=== PATIENT | female | born 1960 | race Caucasian/White ===

== ENCOUNTER → 2016-08-22 | Outpatient (CLI) | payer OTHER ==
--- NOTE | 2016-08-23 12:46 | MAMMOGRAPHY REPORT ---
BILATERAL DIGITAL SCREENING MAMMOGRAM TOMOSYNTHESIS WITH CAD: 08/22/2016 CLINICAL HISTORY: Routine screening. Patient has no complaints. TECHNIQUE: Breast tomosynthesis in addition to standard 2D mammography was performed. Current study was also evaluated with a Computer Aided Detection (CAD) system. COMPARISON: Comparison is made to exams dated: 08/20/2015 mammogram, 08/17/2014 mammogram, 08/15/2013 vannessa mogram, 08/14/2012 mammogram, 08/14/2011 mammogram, and 08/11/2010 mammogram - [facility]. BREAST COMPOSITION: There are scattered areas of fibroglandular density in both breasts. FINDINGS: There is stable asymmetry and punctate microcalcifications in the left upper outer quadran t. No suspicious mass, architectural distortion or cluster of new, suspicious microcalcifications i s seen. IMPRESSION: ACR BI-RADS CATEGORY 1: NEGATIVE There is no mammographic evidence of malignancy. A 1 year screening mammogram is recommended. The p atient will receive written notification of the results. Approximately 10% of breast cancers are not detected with mammography. A negative mammographic repor t should not delay biopsy if a clinically suggestive mass is present. Shweta Braun M.D. ay/:08/22/2016 16:48:36 Box Machine Operator: Bonita DUBOIS)(Sarah), [facility] letter sent: Normal 1/2 BI-RADS Code: ACR BI-RADS Category 1: Negative
== END | disposition home or self-care (01) ==
LOC: C.MAMM 10:05
PROVIDERS: ATTEND Student in an Organized Health Care Education/Training Program
DX: Z12.31 Encounter for screening mammogram for malignant neoplasm of breast (principal)

== ENCOUNTER → 2017-08-24 | Outpatient (CLI) | payer OTHER ==
--- NOTE | 2017-08-27 07:44 | MAMMOGRAPHY REPORT ---
BILATERAL DIGITAL SCREENING MAMMOGRAM TOMOSYNTHESIS WITH CAD: 08/24/2017 CLINICAL HISTORY: Routine screening. Patient has no complaints. TECHNIQUE: Breast tomosynthesis in addition to standard 2D mammography was performed. Current study was also evaluated with a Computer Aided Detection (CAD) system. COMPARISON: Comparison is made to exams dated: 08/22/2016 mammogram, 08/20/2015 mammogram, 08/17/2014 vannessa mogram, 08/15/2013 mammogram, 08/14/2012 mammogram, and 08/14/2011 mammogram - [facility] . BREAST COMPOSITION: There are scattered areas of fibroglandular density in both breasts. FINDINGS: There are grouped calcifications within the left upper outer quadrant, for which spot magni fication views are recommended for further evaluation. The remainder of both breasts demonstrate no s uspicious masses, calcifications, or areas of architectural distortion. IMPRESSION: ACR BI-RADS CATEGORY 0: INCOMPLETE EVALUATION: NEED ADDITIONAL IMAGING EVALUATION Left upper outer quadrant calcifications, for which additional imaging evaluation is recommended. Th e patient will be called to schedule an appointment. Approximately 10% of breast cancers are not detected with mammography. A negative mammographic report should not delay biopsy if a clinically suggestive mass is present. Bri Vinson M.D. /:08/25/2017 11:22:41 It Generalist: Shanae DUBOIS)(Sarah), [facility] letter sent: Addl Imaging 0 BI-RADS Code: ACR BI-RADS Category 0: Incomplete Evaluation: Need Additional Imaging Evaluation
== END | disposition home or self-care (01) ==
LOC: C.MAMM 10:00
PROVIDERS: ATTEND Student in an Organized Health Care Education/Training Program
DX: Z12.31 Encounter for screening mammogram for malignant neoplasm of breast (principal); R92.1 Mammographic calcification found on diagnostic imaging of breast

== ENCOUNTER → 2017-09-05 | Outpatient (CLI) | payer OTHER ==
--- NOTE | 2017-09-05 15:32 | MAMMOGRAPHY REPORT ---
UNILATERAL LEFT DIGITAL DIAGNOSTIC MAMMOGRAM: 09/05/2017 CLINICAL HISTORY: 57-year-old woman called back from screening mammography for microcalcifications in the left upper outer quadrant posteriorly. TECHNIQUE: Spot magnification left CC and ML views were obtained. COMPARISON: Comparison is made to exams dated: 08/24/2017 mammogram, 08/22/2016 mammogram, 08/20/2015 ma mmogram, 08/17/2014 mammogram, 08/15/2013 mammogram, and 08/14/2012 mammogram - [facility] BREAST COMPOSITION: There are scattered areas of fibroglandular density in the left breast. FINDINGS: There are punctate and amorphous microcalcifications and a single coarse calcification in the upper outer posterior left breast with associated asymmetry measuring 3.1 cm in transverse by 2.9 cm in AP by 3.4 cm in craniocaudal dimension. When comparing back to prior available mammograms, so me of the feet microcalcifications have been present dating back to at least 2009 and it is unclear i f the other calcifications are new or simply newly visualized due to different equipment. The asymme try has been present dating back to at least 2008. Nevertheless, given the possible increase in the number of calcifications, definitive characterization with a stereotactic guided biopsy is recommende d. IMPRESSION: ACR BI-RADS CATEGORY 4: SUSPICIOUS There are faint punctate and amorphous microcalcifications with associated asymmetry in the upper out er posterior left breast, measuring 3.1 x 2.9 x 3.4 cm, that has likely been stable for many years ma mmographically but the calcifications are increasingly conspicuous. It is unclear if they are increas ing in number or this is secondary to technique. Given the possible increase, definitive characteriza tion with a left breast stereotactic guided biopsy is recommended. These results and recommendations were discussed with the patient at the time of the exam. She tenta tively scheduled the biopsy prior to leaving our department. Approximately 10% of breast cancers are not detected with mammography. A negative mammographic report should not delay biopsy if a clinically suggestive mass is present. Shweta Braun M.D. ay/:09/05/2017 13:08:23 Primary Care Nurse Practitioner: Tiffany Mayberry, [facility] letter sent: Abnormal 4/5 BI-RADS Code: ACR BI-RADS Category 4: Suspicious
== END | disposition home or self-care (01) ==
LOC: C.MAMM 12:41
PROVIDERS: ATTEND Student in an Organized Health Care Education/Training Program
DX: R92.1 Mammographic calcification found on diagnostic imaging of breast (principal)

== ENCOUNTER → 2017-09-26 | Outpatient (CLI) | payer OTHER ==
--- NOTE | 2017-09-26 13:15 | Discharge Instructions ---
Discharge Instructions Procedure Procedure Date: September 26, 2017. Reason for visit: Left Calcs. Discharge Discharge Date: September 26, 2017. Discharge Diagnosis: post left breast stereotactic guided biopsy Medications Restart Stopped Medication(s): May resume Aspirin tomorrow Instructions Activity Recommendations: Additional Limitations (see below) Return to School/Work: no limitations Recommended Home Diet: No Limitations Provider Instructions: ACTIVITY RECOMMENDATIONS: * No lifting, pushing, pulling or exercising the affected side for three days. RETURN TO SCHOOL/WORK: * You may return to work/school after the procedure, but do not perform any strenuous activities for 24 to 48 hours. MEDICATIONS: * Tylenol (two 325 mg) every four to six hours if needed for mild pain (if not allergic to Tylenol). DIET: * Resume previous diet. SPECIAL CARE INSTRUCTIONS: * Keep biopsy site dry for 24 hours. May shower after 24 hours, but do not soak (bathe) incision. * May remove Tegaderm (plastic patch) tomorrow AFTER showering. * Leave the steri-strips on for one week. Allow the steri-strips to fall off by themselves. If not off after one week, you may remove them. You may place a Bandaid crosswise over the strips, if desired. * Apply ice 10 minutes on and 10 minutes off as needed. * Wear a bra at bedtime to sleep more comfortably for 2-3 days. * Your referring physician should have the results after approximately 5 to 7 business days. * Call for unusual bleeding, fever, drainage, etc or if you have any questions call [phone] during normal business hours or after hours call Dr Braun, . FOLLOW UP VISIT: Follow-up with Referring Physician as scheduled. Allergies Coded Allergies: No Known Allergies (Unverified , 10/03/13) Riley Jenkins Recommendations: Call your doctor if: * Temperature above 101 degrees * Pain not relieved by pain medicine ordered * There is increased drainage or redness from any incision * You have any unanswered questions or concerns. Your Doctors Instructions noted above were prepared by provider Shweta Braun. Patient Signature Section: Patient Instructions Signature Page Roxann Burks Patient (or Guardian) Signature/Date: I have read and understand the instructions given to me by my caregivers. Caregiver/RN/Doctor Signature/Date: The above-named patient and/or guardian has received patient instructions on this date. + Original Patient Signature Page (only) stays with chart. Please make copy for patient.
--- NOTE | 2017-09-26 15:22 | MAMMOGRAPHY REPORT ---
STEREOTACTIC GUIDED BIOPSY LEFT BREAST: 09/26/2017 CLINICAL HISTORY: 57-year-old woman presents for biopsy of a 3 cm focal asymmetry with associated oswaldo rphous microcalcifications in the upper outer posterior left breast. COMPARISON: Comparison is made to exams dated: 09/05/2017 mammogram, 08/24/2017 mammogram, 08/22/2016 m ammogram, 08/20/2015 mammogram, 08/17/2014 mammogram, and 08/15/2013 mammogram - [facility]. PATIENT CONSENT: After explaining the risks, benefits and alternatives of the procedure to the patien t, informed consent was obtained both verbally and in writing. Specific risks include: Bleeding, inf ection, puncture of adjacent structure, pain, nontarget biopsy, sampling error, metal allergy and med ication reaction. PROCEDURE DESCRIPTION: A time-out was performed and the left breast was confirmed as the site of biop sy. The patient was placed prone on the stereotactic biopsy table and the breast was placed in latera l - medial compression. A apprentice cosmetologist image was obtained that demonstrated the clustered microcalcification s in question. They are amenable to sterotactic biopsy. Then +15 and -15 stereo pair images were o btained. The calcifications were targeted utilizing the coordinates obtained by the computer. The sk in was prepped with Betadine. 1% Lidocaine with and without epinipherine was administered as local an esthesia. A small skin incision was made. Through the incision, the needle was inserted to the depth determined by the computer. 10 samples were obtained using a [employer]an[employer] 9-gauge vacuum-assisted bio psy device. The specimen radiograph demonstrated several abrasives sales representative microcalcifications, therefor e, a metallic marker was placed at the biopsy site. There was no immediate complication. Hemostasis w as achieved after several minutes of manual compression. The samples were sent to pathology in an ap propriately labeled container . They were not out as calcifications were seen within nearly each core biopsy sample. Postprocedure CC and ML tomosynthesis views of the left breast were obtained. There is a new dumbbe ll-shaped biopsy marker clip and a 17 mm oval hematoma at the site of the biopsy involving the asymme try with associated amorphous microcalcification in the upper outer posterior left breast. IMPRESSION: STEREOTACTIC GUIDED BIOPSY Status post left breast stereotactic guided biopsy of a 3 cm focal asymmetry with associated amorphou s microcalcification in the upper outer posterior left breast, with biopsy marker clip placed at the site. The patient will receive notification of the biopsy results from her referring physician. Shweta Braun M.D. ay/:09/26/2017 13:40:08 Head Bucker: Tiffany Mayberry, [facility]
--- NOTE | 2017-09-26 15:26 | MAMMOGRAPHY REPORT ---
UNILATERAL LEFT DIGITAL DIAGNOSTIC MAMMOGRAM TOMOSYNTHESIS: 09/26/2017 CLINICAL HISTORY: Status post left breast stereotactic guided biopsy of a 3 cm focal asymmetry with a ssociated punctate/amorphous microcalcifications in the left upper outer quadrant posteriorly. Please refer to the report from left breast stereotactic guided biopsy performed at the same time for full detail. IMPRESSION: POST PROCEDURE IMAGING FOR MARKER PLACEMENT Please refer to the report from left breast stereotactic guided biopsy performed at the same time for full detail. Approximately 10% of breast cancers are not detected with mammography. A negative mammographic report should not delay biopsy if a clinically suggestive mass is present. Shweta Braun M.D. ay/:09/26/2017 13:17:24 Child And Family Therapist: Tiffany Mayberry, [facility] BI-RADS Code: Post Procedure Imaging For Marker Placement
== END | disposition home or self-care (01) ==
LOC: C.MAMM 12:41
PROVIDERS: ATTEND Student in an Organized Health Care Education/Training Program
DX: R92.0 Mammographic microcalcification found on diagnostic imaging of breast (principal)